=== PATIENT | female | born 1970 | race Caucasian/White ===

== ENCOUNTER 2022-04-23 07:25 | Emergency (ER) | payer SELFPAY ==
[2022-04-23 07:43] VITALS: O2SAT 100
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
[2022-04-23] MEDS ORDERED: TYLENOL 325 MG PO STA (08:38)
[2022-04-23] MEDS ORDERED: TYLENOL 325 MG ONE (08:40)
[2022-04-23 09:29] VITALS: BP 170/90; PULSE 66
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
== END 2022-04-23 09:29 | disposition home or self-care (01) ==
LOC: ED 07:25
DX: S09.90XA Unspecified injury of head, initial encounter (principal); S49.92XA Unspecified injury of left shoulder and upper arm, initial encounter; V89.2XXA Person injured in unspecified motor-vehicle accident, traffic, initial encounter; M25.512 Pain in left shoulder; R51.9 Headache, unspecified
CPT/HCPCS: 70450; 73030; 99283; 99291; A9270-GY